=== PATIENT | male | born 1955 | race Caucasian/White ===

== ENCOUNTER 2021-12-12 20:11 | Observation (INO) | payer BC ==
[~2021-12-12 20:11] MED LIST: Iopamidol 370 76% 100 ML VIAL ONE
[2021-12-12 21:00] LABS: #Basophils 0.1 10x3/uL (0.0-0.2); #Eosinphils 0.3 10x3/uL (0.0-0.5); #Monocytes 0.8 10x3/uL (0.0-1.1); #Neutrophils 6.4 10x3/uL (1.5-8.4); %Basophils 0.6 % (0.0-2.0); %Eosinophils 2.7 % (0.0-6.0); %Lymphocytes 19.5 % (18.0-47.0); %Monocytes 8.2 % (0.0-10.0); %Neutrophils 68.6 % (40.0-75.0); Hemoglobin 13.8 g/dL (13.5-17.5); Mean Corpuscular HGB CONC 36.2 g/dL (32.0-36.0); Mean Corpuscular Hemoglobin 32.1 pg (27.0-33.0); Mean Corpuscular Volume 88.6 fl (81.2-95.1); Mean Platelet Volume 9.1 fl (7.4-10.4); Platelet Count 150 10x3/uL (150-450); RBC Distribution Width 12.4 % (11.5-14.5); White Blood Cell (WBC) Count 9.3 10x3/uL (3.5-10.5)
[2021-12-12 21:12] LABS: PTT 24.5 sec (22.0-33.0); Prothrombin Time 11.1 sec (9.5-12.1)
[2021-12-12 21:15] LABS: ALT (SGPT) 22 U/L (8-55); AST (SGOT) 24 U/L (5-34); Alkaline Phosphatase 84 U/L (40-110); Anion Gap 13 mmol/L (10-20); BUN (Urea Nitrogen) 16 mg/dL (8.4-25.7); Bilirubin, Total 0.6 mg/dL (0.2-1.2); Calc. Creatinine Clearance 0 mL/min (70-130); Calcium 9.5 mg/dL (7.8-10.44); Carbon Dioxide 29 mmol/L (23-31); Chloride 92 mmol/L (98-107); Globulin 2.4 g/dL (2.4-3.5); Glucose 92 mg/dL (80-115); Potassium 3.2 mmol/L (3.5-5.1); Protein, Total 6.4 g/dL (5.8-8.1); Sodium 131 mmol/L (136-145)
[2021-12-12] MEDS ORDERED: Aspirin 325 MG TAB ONE (22:07)
[2021-12-12] MEDS ORDERED: Ondansetron PF 4 MG/2 ML Vial IVP PRN (23:14)
[2021-12-12] MEDS ORDERED: Calcium Carbonate 500 MG ChewTAB PO PRN (23:14)
[2021-12-12] MEDS ORDERED: HYDROcodone/Acetaminophen 5/325 mg Tablet PO PRN (23:14)
[2021-12-12] MEDS ORDERED: Senokot S 8.6-50 MG TAB PO PRN (23:14)
[2021-12-12] MEDS ORDERED: Acetaminophen 325 MG TAB PO PRN (23:14)
[2021-12-12] MEDS ORDERED: Guaifenesin DM 100-10/5 ML UDCUP PO PRN (23:14)
[2021-12-12] MEDS ORDERED: Potassium Chloride 20 MEQ TAB PO SCH (23:30)
[2021-12-12] MEDS ORDERED: predniSONE 20 MG TAB PO SCH (23:30)
[2021-12-13] MEDS ORDERED: Potassium Chloride 20 MEQ TAB ONE ×2 (00:52→06:35)
[2021-12-13 01:03] LABS: SARS-CoV-2 NAA Rapid Test Not Detected (NotDetected)
[2021-12-13 03:45] LABS: Anion Gap 16 mmol/L (10-20); BUN (Urea Nitrogen) 13 mg/dL (8.4-25.7); Calc. Creatinine Clearance 0 mL/min (70-130); Calcium 9.4 mg/dL (7.8-10.44); Carbon Dioxide 27 mmol/L (23-31); Cardiac Risk 4.1 (Less than 4.5); Chloride 95 mmol/L (98-107); Cholesterol 130 mg/dl (< 200 Desired); Glucose 99 mg/dL (80-115); HDL Cholesterol 32 mg/dL (>60 Neg Risk); LDL Cholesterol, Calculated 62 mg/dL; Magnesium 1.7 mg/dL (1.6-2.6); Potassium 3.5 mmol/L (3.5-5.1); Sodium 134 mmol/L (136-145); Triglycerides 179 mg/dL (Less than 150)
[2021-12-13 04:03] LABS: Thyroid Stimulating Hormone 0.3197 uIU/mL (0.35-4.94)
[2021-12-13] MEDS ORDERED: Potassium Chloride 20 MEQ TAB PO SCH (05:45)
[2021-12-13] MEDS ORDERED: Magnesium Sulfate/D5W 1 GM/100 ML BAG IVPB SCH (05:45)
[2021-12-13] MEDS: Clopidogrel Bisulfate 75 MG TAB PO SCH (09:33)
[2021-12-13] MEDS: Aspirin 81 mg Enteric Coated Tablet PO SCH (09:33)
[2021-12-13] MEDS: Enoxaparin Sodium 40 MG/0.4 ML SYRINGE SC SCH (09:33)
[2021-12-13] MEDS: predniSONE 20 MG TAB PO SCH (09:33)
[2021-12-13 09:57] VITALS: BMI 25.1
[2021-12-13] MEDS ORDERED: Prevnar 13-Val Conj/PF 0.5 ML SYRINGE IM ONE (10:15)
[2021-12-13 12:43] LABS: Hemoglobin A1c 5.4 % (4.0-6.0)
[2021-12-13] MEDS ORDERED: Atorvastatin Calcium 20 MG TAB PO SCH (21:00)
[2021-12-13] MEDS ORDERED: Atorvastatin Calcium 40 MG TAB PO SCH (21:00)
[2021-12-14] MEDS: Enoxaparin Sodium 40 MG/0.4 ML SYRINGE SC SCH (07:53)
[2021-12-14] MEDS: Aspirin 81 mg Enteric Coated Tablet PO SCH (07:53)
[2021-12-14] MEDS: predniSONE 20 MG TAB PO SCH (07:53)
[2021-12-14] MEDS: Clopidogrel Bisulfate 75 MG TAB PO SCH (07:53)
[2021-12-14 11:27] VITALS: BP 138/78; TEMP 98.1
== END 2021-12-14 13:25 | disposition home or self-care (01) ==
LOC: CSHERS 20:11 → CSHERHOLD 23:17 → CSHTELE 12-13 07:45
PROVIDERS: ADMIT Hospitalist; ATTEND Hospitalist
DX: G45.9 Transient cerebral ischemic attack, unspecified (principal); E87.6 Hypokalemia; R91.8 Other nonspecific abnormal finding of lung field; R05.3 Chronic cough; E87.1 Hypo-osmolality and hyponatremia; I10 Essential (primary) hypertension; E78.5 Hyperlipidemia, unspecified; I73.9 Peripheral vascular disease, unspecified; F17.210 Nicotine dependence, cigarettes, uncomplicated; F10.10 Alcohol abuse, uncomplicated; Z79.82 Long term (current) use of aspirin; Z79.899 Other long term (current) drug therapy; Z20.822 Contact with and (suspected) exposure to COVID-19
CPT/HCPCS: 36415; 36416; 70450; 70496; 70498; 70551; 71045; 80048; 80053; 80061; 82607; 82746; 83036; 83735; 84439; 84443; 84484; 85025; 85610; 85730; 93005; 93306; 94640; 94760; 96372; 96374; 96376; G0378; J1650; J1956; J7512; J7620; Q9967; U0002

== ENCOUNTER 2021-12-30 12:02 | Outpatient (CLI) | payer BC | END 2021-12-30 12:03 | disposition home or self-care (01) | LOC: CSHLAB 12:02 | PROVIDERS: ATTEND Student in an Organized Health Care Education/Training Program | DX: Z20.822 Contact with and (suspected) exposure to COVID-19 (principal) | CPT/HCPCS: U0003; U0005 ==

== ENCOUNTER 2022-01-03 09:03 | Outpatient (CLI) | payer BC | END 2022-01-03 09:04 | disposition home or self-care (01) | LOC: CSHCP 09:03 | PROVIDERS: ATTEND Student in an Organized Health Care Education/Training Program | DX: R06.09 Other forms of dyspnea (principal); Z72.0 Tobacco use; R94.2 Abnormal results of pulmonary function studies | CPT/HCPCS: 94060; 94726; 94729; 94760 ==

== ENCOUNTER 2022-05-02 08:39 | Inpatient (IN) | payer BC ==
[2022-05-02] MEDS ORDERED: Iopamidol 370 76% 100 ML VIAL ONE (08:55)
[2022-05-02 09:42] LABS: PTT 21.9 sec (22.0-33.0); Prothrombin Time 10.9 sec (9.5-12.1)
[2022-05-02 09:43] LABS: #Basophils 0.1 10x3/uL (0.0-0.2); #Eosinphils 0.1 10x3/uL (0.0-0.5); #Monocytes 0.5 10x3/uL (0.0-1.1); %Basophils 0.9 % (0.0-2.0); %Eosinophils 1.8 % (0.0-6.0); %Lymphocytes 14.1 % (18.0-47.0); %Monocytes 6.7 % (0.0-10.0); %Neutrophils 76.2 % (40.0-75.0); Hemoglobin 16.1 g/dL (13.5-17.5); Mean Corpuscular HGB CONC 37.3 g/dL (32.0-36.0); Mean Corpuscular Hemoglobin 32.9 pg (27.0-33.0); Mean Corpuscular Volume 88.2 fl (81.2-95.1); Mean Platelet Volume 9.3 fl (7.4-10.4); Platelet Count 196 10x3/uL (150-450); RBC Distribution Width 12.2 % (11.5-14.5); White Blood Cell (WBC) Count 7.9 10x3/uL (3.5-10.5)
[2022-05-02] MEDS ORDERED: Aspirin Chewable 81 MG TAB ONE (09:47)
[2022-05-02] MEDS ORDERED: Acetaminophen 325 MG TAB PO PRN (11:51)
[2022-05-02] MEDS ORDERED: hydrALAZINE 20 MG/ML VIAL SLOW IVP PRN (11:54)
[2022-05-02] MEDS ORDERED: Electrolyte Replacement Protocol 1 EACH FS SCH (12:00)
[2022-05-02 12:17] LABS: Lactic Acid 1.2 mmol/L (0.5-2.2)
[2022-05-02 13:02] LABS: Anion Gap 13 mmol/L (10-20); BUN (Urea Nitrogen) 9 mg/dL (8.4-25.7); Calc. Creatinine Clearance 0 mL/min (70-130); Carbon Dioxide 26 mmol/L (23-31); Chloride 101 mmol/L (98-107); Estimated GFR 104; Glucose 87 mg/dL (80-115); Potassium 3.7 mmol/L (3.5-5.1); Sodium 136 mmol/L (136-145)
[2022-05-02] MEDS ORDERED: Ventolin HFA Inhaler 60 PUFF INHALER INH PRN (14:11)
[2022-05-02] MEDS ORDERED: Lorazepam 1 MG TAB PO PRN (14:41)
[2022-05-02] MEDS ORDERED: Lorazepam 1 MG TAB PO SCH (14:45)
[2022-05-02 16:15] VITALS: BMI 26.0
[2022-05-02 16:36] LABS: SARS-CoV-2 NAA Rapid Test Not Detected (NotDetected)
[2022-05-02] MEDS: Lorazepam 1 MG TAB PO SCH ×2 (16:47→21:50)
[2022-05-02] MEDS ORDERED: FLU VACC QS2022-23(65YR UP)/PF 240 MCG/0.7 ML SYRINGE IM ONE (17:15)
[2022-05-02] MEDS: Rosuvastatin 20 MG TAB PO SCH (21:50)
[2022-05-03] MEDS: Lorazepam 1 MG TAB PO SCH ×4 (04:02→21:37)
[2022-05-03 06:09] LABS: #Basophils 0.1 10x3/uL (0.0-0.2); #Eosinphils 0.3 10x3/uL (0.0-0.5); #Monocytes 0.5 10x3/uL (0.0-1.1); #Neutrophils 4.3 10x3/uL (1.5-8.4); %Eosinophils 4.8 % (0.0-6.0); %Lymphocytes 18.3 % (18.0-47.0); %Monocytes 7.6 % (0.0-10.0); Hemoglobin 15.6 g/dL (13.5-17.5); Mean Corpuscular HGB CONC 35.9 g/dL (32.0-36.0); Mean Corpuscular Hemoglobin 32.2 pg (27.0-33.0); Mean Corpuscular Volume 89.9 fl (81.2-95.1); Mean Platelet Volume 8.7 fl (7.4-10.4); Platelet Count 172 10x3/uL (150-450); RBC Distribution Width 12.3 % (11.5-14.5); Red Blood Cell (RBC) Count 4.84 10x6/uL (4.32-5.72); White Blood Cell (WBC) Count 6.3 10x3/uL (3.5-10.5)
[2022-05-03 06:26] LABS: Anion Gap 11 mmol/L (10-20); BUN (Urea Nitrogen) 9 mg/dL (8.4-25.7); Calc. Creatinine Clearance 126 mL/min (70-130); Calcium 9.1 mg/dL (7.8-10.44); Carbon Dioxide 29 mmol/L (23-31); Chloride 102 mmol/L (98-107); Cholesterol 99 mg/dl (< 200 Desired); Estimated GFR 103; Glucose 105 mg/dL (80-115); HDL Cholesterol 33 mg/dL (>60 Neg Risk); LDL Cholesterol, Calculated 52 mg/dL; Magnesium 1.9 mg/dL (1.6-2.6); Potassium 3.9 mmol/L (3.5-5.1); Sodium 138 mmol/L (136-145); Triglycerides 70 mg/dL (Less than 150)
[2022-05-03] MEDS ORDERED: Magnesium 2 GM/50 ML(in water) 2 GM in Premix Bag 1 BAG IVPB SCH (08:00)
[2022-05-03] MEDS: Clopidogrel Bisulfate 75 MG TAB PO SCH (10:15)
[2022-05-03] MEDS: Aspirin 81 mg Enteric Coated Tablet PO SCH (10:16)
[2022-05-03] MEDS: Enoxaparin Sodium 40 MG/0.4 ML SYRINGE SC SCH (12:25)
[2022-05-03 12:39] LABS: Hemoglobin A1c 5.4 % (4.0-6.0)
[2022-05-03] MEDS ORDERED: Lorazepam 1 MG TAB PO PRN (14:41)
[2022-05-03] MEDS: Rosuvastatin 20 MG TAB PO SCH (21:03)
[2022-05-04 05:07] LABS: Anion Gap 11 mmol/L (10-20); BUN (Urea Nitrogen) 8 mg/dL (8.4-25.7); Calc. Creatinine Clearance 130 mL/min (70-130); Calcium 8.7 mg/dL (7.8-10.44); Carbon Dioxide 28 mmol/L (23-31); Chloride 104 mmol/L (98-107); Estimated GFR 104; Glucose 110 mg/dL (80-115); Magnesium 1.9 mg/dL (1.6-2.6); Potassium 3.7 mmol/L (3.5-5.1); Sodium 139 mmol/L (136-145)
[2022-05-04] MEDS: Lorazepam 1 MG TAB PO SCH ×2 (05:33→09:01)
[2022-05-04] MEDS ORDERED: Magnesium 2 GM/50 ML(in water) 2 GM in Premix Bag 1 BAG IVPB SCH (08:00)
[2022-05-04] MEDS ORDERED: Lisinopril 20 MG TAB PO SCH (09:00)
[2022-05-04] MEDS: Enoxaparin Sodium 40 MG/0.4 ML SYRINGE SC SCH (09:00)
[2022-05-04] MEDS ORDERED: Hydrochlorothiazide 25 MG TAB PO SCH (09:00)
[2022-05-04] MEDS: Aspirin 81 mg Enteric Coated Tablet PO SCH (09:00)
[2022-05-04] MEDS: Clopidogrel Bisulfate 75 MG TAB PO SCH (09:00)
[2022-05-04 10:08] VITALS: BP 161/77; TEMP 98
[2022-05-04] MEDS ORDERED: Lorazepam 1 MG TAB PO PRN (14:41)
[2022-05-04] MEDS ORDERED: Lorazepam 0.5 MG TAB PO SCH (16:00)
[2022-05-05] MEDS ORDERED: Lorazepam 0.5 MG TAB PO PRN (14:41)
== END 2022-05-04 12:00 | disposition home or self-care (01) | DRG 69 ==
LOC: CSHERS 08:39 → CSHTELE 15:51
PROVIDERS: ADMIT Family Medicine; ATTEND Family Medicine
DX: G45.9 Transient cerebral ischemic attack, unspecified (principal); E87.1 Hypo-osmolality and hyponatremia; I10 Essential (primary) hypertension; E78.5 Hyperlipidemia, unspecified; I73.9 Peripheral vascular disease, unspecified; R29.704 NIHSS score 4; R29.810 Facial weakness; I25.10 Atherosclerotic heart disease of native coronary artery without angina pectoris; F17.210 Nicotine dependence, cigarettes, uncomplicated; H53.47 Heteronymous bilateral field defects; E87.6 Hypokalemia; R26.9 Unspecified abnormalities of gait and mobility; F10.10 Alcohol abuse, uncomplicated; Z20.822 Contact with and (suspected) exposure to COVID-19; Z79.82 Long term (current) use of aspirin; Z79.02 Long term (current) use of antithrombotics/antiplatelets; Z86.73 Personal history of transient ischemic attack (TIA), and cerebral infarction without residual deficits; Z90.49 Acquired absence of other specified parts of digestive tract; Z95.820 Peripheral vascular angioplasty status with implants and grafts; Z82.49 Family history of ischemic heart disease and other diseases of the circulatory system; Z83.3 Family history of diabetes mellitus; Z79.899 Other long term (current) drug therapy
CPT/HCPCS: 0042T; 36415; 36416; 70450; 70551; 71045; 80048; 80061; 83036; 83605; 83735; 83880; 84439; 84443; 84484; 85025; 85610; 85730; 93005; 93306; 93880; 94760; J1650; J3475; Q9967; U0002

== ENCOUNTER 2022-06-20 13:09 | Outpatient (CLI) | payer BC | END 2022-06-20 13:10 | disposition home or self-care (01) | LOC: CSHCT 13:09 | PROVIDERS: ATTEND Student in an Organized Health Care Education/Training Program | DX: Z12.2 Encounter for screening for malignant neoplasm of respiratory organs (principal); F17.210 Nicotine dependence, cigarettes, uncomplicated; E04.2 Nontoxic multinodular goiter | CPT/HCPCS: 71271 ==

== ENCOUNTER 2023-04-16 09:14 | Emergency (ER) | payer BC ==
[2023-04-16 10:07] LABS: #Basophils 0.1 10x3/uL (0.0-0.2); #Eosinphils 0.2 10x3/uL (0.0-0.5); #Monocytes 0.6 10x3/uL (0.0-1.1); #Neutrophils 5.6 10x3/uL (1.5-8.4); %Basophils 0.9 % (0.0-2.0); %Eosinophils 3.1 % (0.0-6.0); %Lymphocytes 15.1 % (18.0-47.0); %Monocytes 7.9 % (0.0-10.0); %Neutrophils 72.6 % (40.0-75.0); Hematocrit 44.4 % (38.8-50.0); Hemoglobin 16.1 g/dL (13.5-17.5); Mean Corpuscular HGB CONC 36.3 g/dL (32.0-36.0); Mean Corpuscular Hemoglobin 31.9 pg (27.0-33.0); Mean Corpuscular Volume 87.9 fl (81.2-95.1); Mean Platelet Volume 8.8 fl (7.4-10.4); Platelet Count 224 10x3/uL (150-450); RBC Distribution Width 12.3 % (11.5-14.5); Red Blood Cell (RBC) Count 5.05 10x6/uL (4.32-5.72); White Blood Cell (WBC) Count 7.8 10x3/uL (3.5-10.5)
[2023-04-16 10:24] LABS: ALT (SGPT) 25 U/L (8-55); AST (SGOT) 22 U/L (5-34); Albumin 4.6 g/dL (3.4-4.8); Alkaline Phosphatase 137 U/L (40-110); Anion Gap 16 mmol/L (10-20); BUN (Urea Nitrogen) 7 mg/dL (8.4-25.7); Bilirubin, Total 0.8 mg/dL (0.2-1.2); Calc. Creatinine Clearance 0 mL/min (70-130); Calcium 9.8 mg/dL (7.8-10.44); Carbon Dioxide 27 mmol/L (23-31); Chloride 91 mmol/L (98-107); Estimated GFR 101; Glucose 107 mg/dL (80-115); Lipase 299 U/L (8-78); Potassium 4.1 mmol/L (3.5-5.1); Protein, Total 7.6 g/dL (5.8-8.1); Sodium 130 mmol/L (136-145)
[2023-04-16 10:33] LABS: Bilirubin Neg (Negative); Blood, Urine Negative (Negative); Clarity Clear (Clear); Glucose, Urine (Dipstick) Normal (Negative); Ketone, Urine Negative (Negative); Leukocyte Negative (Negative); Nitrite Negative (Negative); Protein, Urine (Dipstick) Negative (Neg-Trace); Urobilinogen Normal mg/dL (Less than 2)
[2023-04-16 11:01] LABS: Bacteria/HPF None Seen HPF (None Seen); CAUTI Indications for Culture Pelvic or flank pain; RBC/HPF None Seen HPF (0-3); Squamous Epithelial 0-3 HPF (0-3); WBC/HPF None Seen HPF (0-3)
[2023-04-16 11:02] LABS: Urine Culture Reflex No No
[2023-04-16] MEDS ORDERED: Iopamidol 300 61% 100 ML VIAL FS ONE (13:46)
== END 2023-04-16 12:00 | disposition home or self-care (01) ==
LOC: CSHERS 09:14
DX: K85.90 Acute pancreatitis without necrosis or infection, unspecified (principal); K52.9 Noninfective gastroenteritis and colitis, unspecified; I72.3 Aneurysm of iliac artery; E78.5 Hyperlipidemia, unspecified; I10 Essential (primary) hypertension; F17.210 Nicotine dependence, cigarettes, uncomplicated
CPT/HCPCS: 74177; 80053; 81001; 83690; 85025; Q9967